=== PATIENT | female | born 1990 | race African-American/Black ===

== ENCOUNTER 2019-04-25 15:03 | Emergency (ER) | payer OTHER ==
[~2019-04-25 15:03] MED LIST: CEPH-443 PO; HYDR-3980 PO; IBUP-1542 PO; NALO4SPR NS; PREN-47 PO
[2019-04-25] MEDS ORDERED: LIDOCAINE 1% (MDV) 20 ML INJ SC ONE (16:30)
[2019-04-25] MEDS ORDERED: DIPHTH/TET/ACEL PERTUSS (ADULT) 0.5 ML VIAL IM* ONE (16:30)
[2019-04-25] MEDS ORDERED: HYDROCODONE/APAP (10/325) TAB PO ONE (16:30)
[2019-04-25] MEDS ORDERED: CEFAZOLIN 500 MG INJ IM ONE (16:30)
== END 2019-04-25 17:36 | disposition home or self-care (01) ==
LOC: FTE 15:03
DX: S91.011A Laceration without foreign body, right ankle, initial encounter (principal); S86.001A Unspecified injury of right Achilles tendon, initial encounter; V00.831A Fall from motorized mobility scooter, initial encounter; Z23 Encounter for immunization
CPT/HCPCS: 12002; 73610; 90471; 90715; 96372; 99284; J0690